=== PATIENT | male | born 1955 | race Caucasian/White ===

== ENCOUNTER 2018-04-29 16:41 | Emergency (ER) | payer MEDICARE, MEDICAID ==
[~2018-04-29] VITALS: Ht 177.8 cm; Wt 78.2 kg
[2018-04-29] MEDS ORDERED: normal saline 1000ML IV soln IVB ONE ×2 (17:00→19:15)
--- NOTE | 2018-04-29 17:00 | NUR ---
LEFT FOR PENELOPE
[2018-04-29 17:35] LABS: BASOPHILS % (AUTO) 0.1 % (0-1); EOSINOPHILS % (AUTO) 0 % (0-6); HEMATOCRIT 43.9 % (42.0-52.0); HEMOGLOBIN 14.6 g/dl (14.0-17.9); LYMPHOCYTES # (AUTO) 0.6 X10'3 (1.1-4.8); LYMPHOCYTES % (AUTO) 5.8 % (21-51); MEAN CORPUSCULAR HGB CONC 33.3 g/dL (33.0-36.5); MEAN PLATELET VOLUME 8.5 FL (7.4-10.4); MONOCYTES # (AUTO) 0.7 X10'3 (0-0.9); MONOCYTES % (AUTO) 6.2 % (2-12); NEUTROPHILS # (AUTO) 9.6 X10'3 (1.8-7.7); NEUTROPHILS % (AUTO) 87.9 % (42-75); PLATELET COUNT 218 X10'3 (140-440); RED BLOOD COUNT 5.22 X10'6 (4.70-6.10); RED CELL DISTRIBUTION WIDTH 14.3 % (11.5-14.5)
[2018-04-29 17:45] VITALS: BP 118/67
[2018-04-29 17:46] LABS: ALANINE AMINOTRANSFERASE 46 U/L (12-78); ALBUMIN 4.3 G/DL (3.4-5.0); ALBUMIN/GLOBULIN RATIO 1.2 (1.1-1.5); ALKALINE PHOSPHATASE 102 IU/L (46-116); ANION GAP 13 (8-16); ASPARTATE AMINO TRANSFERASE 24 U/L (10-37); BILIRUBIN,TOTAL 0.3 MG/DL (0.1-1.0); BLOOD UREA NITROGEN 20 MG/DL (7-18); BUN/CREATININE RATIO 8.6 (5.4-32.0); CALCIUM 9.7 MG/DL (8.5-10.1); CHLORIDE 113 MMOL/L (99-107); CREATININE 2.33 MG/DL (0.60-1.10); GLUCOSE 168 MG/DL (70-104); TOTAL CARBON DIOXIDE 28.8 MMOL/L (24-32); TOTAL PROTEIN 7.9 G/DL (6.4-8.2); eGFR 28 ML/MIN
[2018-04-29] MEDS ORDERED: MIDAZolam 5mg/5ml vial ONE (18:00)
[2018-04-29] MEDS ORDERED: fentaNYL/PF 50MCG/1 ML 2ML syringe ONE (18:00)
[2018-04-29 18:04] LABS: SODIUM 155 MMOL/L (135-145)
[2018-04-29 18:51] VITALS: BP 120/71
[2018-04-29 19:01] VITALS: BP 123/80
[2018-04-29 19:11] VITALS: BP 129/83
[2018-04-29 19:21] VITALS: BP 130/77
[2018-04-29] MEDS ORDERED: OMEP20TA5 PO (19:59)
[2018-04-29 21:18] VITALS: BP 147/81
--- NOTE | 2018-04-29 21:21 | NUR ---
SENT INTELLIGENCE OFFICER BASIC TO PT BEDSIDE TO DRAW BMP ORDERED BY DR ARRINGTON
[2018-04-29 21:39] LABS: ALBUMIN 3.8 G/DL (3.4-5.0); ANION GAP 10 (8-16); BLOOD UREA NITROGEN 18 MG/DL (7-18); BUN/CREATININE RATIO 8.7 (5.4-32.0); CALCIUM 8.5 MG/DL (8.5-10.1); CHLORIDE 117 MMOL/L (99-107); CREATININE 2.08 MG/DL (0.60-1.10); GLUCOSE 132 MG/DL (70-104); POTASSIUM 3.9 MMOL/L (3.5-5.1); TOTAL CARBON DIOXIDE 28.4 MMOL/L (24-32); eGFR 32 ML/MIN
[2018-04-29 21:43] LABS: SODIUM 155 MMOL/L (135-145)
== END 2018-04-29 22:23 ==
LOC: ER 16:42
DX: T18.128A Food in esophagus causing other injury, initial encounter (principal); E87.0 Hyperosmolality and hypernatremia; E11.22 Type 2 diabetes mellitus with diabetic chronic kidney disease; N18.9 Chronic kidney disease, unspecified; X58.XXXA Exposure to other specified factors, initial encounter; Y93.89 Activity, other specified; Y92.89 Other specified places as the place of occurrence of the external cause; Y99.8 Other external cause status
CPT/HCPCS: 36415; 43247; 71045; 80048; 80053; 85025; 96360; 96361; 99152; 99153; 99285; J2250; J3010; J7030; 99284; A4620

== ENCOUNTER 2021-10-01 14:15 | Emergency (ER) | payer MEDICARE, MEDICAID ==
[~2021-10-01] VITALS: Ht 177.8 cm; Wt 86.0 kg
[~2021-10-01 14:15] MED LIST: OMEP20TA43 PO
[2021-10-01] MEDS ORDERED: normal saline 1000ML IV soln IV ONE (14:25)
[2021-10-01 14:46] LABS: BASOPHILS % (AUTO) 0.2 % (0-1); EOSINOPHILS % (AUTO) 0.1 % (0-6); HEMATOCRIT 37.5 % (42.0-52.0); HEMOGLOBIN 12.8 g/dl (14.0-17.9); LYMPHOCYTES # (AUTO) 0.8 X10'3 (1.1-4.8); LYMPHOCYTES % (AUTO) 11.6 % (21-51); MEAN CORPUSCULAR HEMOGLOBIN 28.3 PG (27.0-31.0); MEAN CORPUSCULAR VOLUME 83.2 FL (78-98); MEAN PLATELET VOLUME 8.5 FL (7.4-10.4); MONOCYTES # (AUTO) 0.6 X10'3 (0-0.9); MONOCYTES % (AUTO) 8.7 % (2-12); NEUTROPHILS # (AUTO) 5.8 X10'3 (1.8-7.7); NEUTROPHILS % (AUTO) 79.4 % (42-75); PLATELET COUNT 206 X10'3 (140-440); RED BLOOD COUNT 4.51 X10'6 (4.70-6.10); RED CELL DISTRIBUTION WIDTH 13.6 % (11.5-14.5); WHITE BLOOD COUNT 7.3 X10'3 (4.5-11.0)
[2021-10-01 15:00] LABS: ALANINE AMINOTRANSFERASE 21 U/L (12-78); ALBUMIN 3.7 G/DL (3.4-5.0); ALKALINE PHOSPHATASE 127 IU/L (46-116); ANION GAP 10 (8-16); ASPARTATE AMINO TRANSFERASE 11 U/L (10-37); BILIRUBIN,TOTAL 0.3 MG/DL (0.1-1.0); BLOOD UREA NITROGEN 19 MG/DL (7-18); CALCIUM 9.2 MG/DL (8.5-10.1); CHLORIDE 102 MMOL/L (99-107); CREATININE 1.58 MG/DL (0.60-1.10); GLUCOSE 158 MG/DL (70-104); POTASSIUM 3.6 MMOL/L (3.5-5.1); SODIUM 140 MMOL/L (135-145); TOTAL CARBON DIOXIDE 27.8 MMOL/L (24-32); TOTAL PROTEIN 7.3 G/DL (6.4-8.2); eGFR 44 ML/MIN
[2021-10-01 16:52] LABS: CLARITY,URINE CLEAR (Clear); COLOR,URINE YELLOW (Yellow); GLUCOSE, URINE NEGATIVE (Neg); KETONES,URINE NEGATIVE (Neg); LEUKOCYTE ESTERASE ,URINE NEGATIVE (Neg); NITRITES, URINE NEGATIVE (Neg); OCCULT BLOOD,URINE NEGATIVE (Neg); PROTEIN,URINE NEGATIVE (Neg); UROBILINOGEN,URINE 0.2 E.U/dL (0.2-1.0)
[2021-10-01 17:05] VITALS: BP 136/87
[2021-10-01 17:21] LABS: UA COLLECTION TYPE CLN CATCH MIDSTREAM
== END 2021-10-01 17:54 | disposition home or self-care (01) ==
LOC: ER 14:16
DX: Z00.00 Encounter for general adult medical examination without abnormal findings (principal); Z71.1 Person with feared health complaint in whom no diagnosis is made; E11.22 Type 2 diabetes mellitus with diabetic chronic kidney disease; N18.9 Chronic kidney disease, unspecified; Z88.8 Allergy status to other drugs, medicaments and biological substances
CPT/HCPCS: 36415; 71045; 80053; 81003; 83605; 83735; 84145; 85025; 87040; 93005; 96360; 96361; 99285; J7030

== ENCOUNTER 2021-10-20 15:14 | Emergency (ER) | payer MEDICARE, MEDICAID ==
[~2021-10-20] VITALS: Ht 177.8 cm; Wt 68.6 kg
[2021-10-20 15:24] VITALS: BP 116/72
[2021-10-20 16:29] LABS: BASOPHILS # (AUTO) 0.1 X10'3 (0-0.2); BASOPHILS % (AUTO) 1.1 % (0-1); EOSINOPHILS % (AUTO) 0.3 % (0-6); HEMATOCRIT 36.8 % (42.0-52.0); HEMOGLOBIN 12.2 g/dl (14.0-17.9); LYMPHOCYTES # (AUTO) 0.8 X10'3 (1.1-4.8); LYMPHOCYTES % (AUTO) 12.3 % (21-51); MEAN CORPUSCULAR HEMOGLOBIN 27.7 PG (27.0-31.0); MEAN CORPUSCULAR HGB CONC 33.2 g/dL (33.0-36.5); MEAN CORPUSCULAR VOLUME 83.6 FL (78-98); MONOCYTES # (AUTO) 0.4 X10'3 (0-0.9); MONOCYTES % (AUTO) 6.4 % (2-12); NEUTROPHILS # (AUTO) 5.3 X10'3 (1.8-7.7); NEUTROPHILS % (AUTO) 79.9 % (42-75); PLATELET COUNT 186 X10'3 (140-440); RED CELL DISTRIBUTION WIDTH 14.7 % (11.5-14.5); WHITE BLOOD COUNT 6.6 X10'3 (4.5-11.0)
[2021-10-20 16:31] LABS: ANION GAP 4 (8-16); CHLORIDE 105 MMOL/L (99-107); GLUCOSE 151 MG/DL (70-104); POTASSIUM 3.5 MMOL/L (3.5-5.1); SODIUM 141 MMOL/L (135-145); TOTAL CARBON DIOXIDE 31.6 MMOL/L (24-32)
[2021-10-20 16:32] LABS: ALANINE AMINOTRANSFERASE 40 U/L (12-78); ALBUMIN 3.5 G/DL (3.4-5.0); ALBUMIN/GLOBULIN RATIO 1.2 (1.1-1.5); ALKALINE PHOSPHATASE 117 IU/L (46-116); ASPARTATE AMINO TRANSFERASE 17 U/L (10-37); BILIRUBIN,TOTAL 0.1 MG/DL (0.1-1.0); BLOOD UREA NITROGEN 20 MG/DL (7-18); BUN/CREATININE RATIO 13.7 (5.4-32.0); CALCIUM 8.9 MG/DL (8.5-10.1); CREATININE 1.46 MG/DL (0.60-1.10); TOTAL PROTEIN 6.5 G/DL (6.4-8.2); eGFR 48 ML/MIN
== END 2021-10-20 17:33 | disposition home or self-care (01) ==
LOC: ER 15:14
DX: M54.2 Cervicalgia (principal); R42 Dizziness and giddiness; W19.XXXA Unspecified fall, initial encounter; E09.22 Drug or chemical induced diabetes mellitus with diabetic chronic kidney disease; N18.9 Chronic kidney disease, unspecified; F20.9 Schizophrenia, unspecified; Z88.8 Allergy status to other drugs, medicaments and biological substances; Z79.899 Other long term (current) drug therapy
CPT/HCPCS: 36415; 70450; 72125; 80053; 85025; 99284

== ENCOUNTER 2024-06-23 12:44 | Outpatient (CLI) | payer MEDICARE, MEDICAID ==
--- NOTE | 2024-06-23 16:30 | CONSULTATION ---
DATE OF CONSULTATION: 06/23/2024 DICTATING PHYSICIAN: Kajal Dutta M.S., [facility]-[employer] SALES REPRESENTATIVE MODIFIED BARIUM SWALLOW STUDY REPORT REFERRING PHYSICIAN: Johnie Olivares MD HISTORY OF PRESENT ILLNESS: The patient is a 69-year-old male who consents to this evaluation. In history obtained from the patient and medical records, the patient has symptoms of dysphagia including feeling that his esophagus closes up and that food and liquid will not go down. He reports this used to happen on a daily basis, but has not been occurring as much lately. He notes that he has been careful about chewing his food better and going slow when he is eating. The patient notes that he hit his head when he was a baby and it broke his neck and so it is crooked. The patient is a resident at [facility] and [facility]. He has diagnoses of paranoid schizophrenia and Vazquez's esophagus without dysplasia. CURRENT DIET: The patient is currently on a regular textured, thin liquid diet. MEDICATIONS: Protonix 40 mg twice daily, docusate sodium 250 mg twice daily p.r.n., Abilify Maintena intramuscular prefilled syringe 300 mg inject intramuscularly every 28 days. PARAMETERS: The patient is seated in a lateral 90-degree view and administered thin and nectar thick liquids and puree consistencies as well as self-regulated boluses of thin liquids from a cup. The patient refused the second puree trial and solid consistency and refused to swallow the nectar thick consistency. RESULTS: In the oral stage of the swallow, there is a mild oral residue. Lingual strength is within functional limits, but this is due to decreased lingual palatal stripping secondary to mildly decreased tongue-base retraction. For the most part, swallow initiation is within functional limits with the exception of one of the administrations of the 3 mL thin liquid bolus, in which the swallow initiation was delayed. In the pharyngeal stage of the swallow, elevation of the hyothyroid complex is accomplished with full range of motion. There is a mild pharyngeal residue and PES opening is within functional limits. The patient was provided the nectar thick liquid, but refused to swallow it and instead spit it out. He had one trial of puree and would not take any other trials or the solid consistency. In terms of airway safety, the patient demonstrated an aspiration that was less than 10% of the bolus for 1 out of 2 trials of the 3 mL thin liquid. He did not demonstrate any aspiration or penetration for the other 3 mL thin liquid as well as 1 mL, 5 mL of self-regulated boluses. For the trial, he did have aspiration, he demonstrated independent cough to project the bolus out of the airway, although there did remain a drop in the airway after his cough. ANTERIOR, POSTERIOR VIEW: In the AP plane, the bolus split symmetrically between the piriform sinuses. It was noted that with the patient, the bolus would remain at the mid sternum. When the fluoroscopy for the anterior-posterior view was turned on, which was about a minute after the last administration of the bolus in the lateral view, there was still residue of that last bolus residing at the level of the mid sternum. The tail of the bolus did not go past the mid sternum for the entirety of the time the video was on. 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 DIAGNOSES: R13.14 dysphagia, pharyngoesophageal phase; F20.0 paranoid schizophrenia, K22.70 Vazquez's esophagus without dysplasia; K22.2 esophageal obstruction. PATIENT EDUCATION: Immediately following a modified barium swallow study, the patient and staff of [facility] were able to view the results. They were able to see how the bolus remained at the level of the mid sternum the entire time during the anterior-posterior view of the swallow as well as the other frames of the swallowing. The patient was educated on alternating liquids and solids, continuing to chew his food thoroughly and going slow, and a potential for a GI consult. RECOMMENDATIONS: * It is recommended that the patient utilize safe swallowing strategies including alternating liquids and solids and chewing his food thoroughly. * It is recommended that the patient be considered for a GI consult regarding what was observed in the AP view with the tail of the bolus sitting at the level of the mid sternum for the entirety of the time frame of the AP view. LONG-TERM GOALS: The patient will maintain adequate hydration/nutrition with optimum safety and efficiency of swallow function on p.o. intake without overt signs and symptoms of aspiration for the highest possible diet level. FUNCTIONAL ORAL INTAKE: The FOIS was administered to establish and document a change in the functional eating activities of this patient over time. This is a 7-point scale with 1 indicating no oral intake and totally tube dependent and 7 indicating total oral intake with no restrictions. This patient received a 7, which indicates total oral intake with no restrictions. G-CODE: [id number]. Thank you very much for asking me to participate in the care of this kind patient. Should you have any questions regarding this evaluation or recommendations, please do not hesitate to contact me at [phone]. During this examination, 2:05 minutes of fluoroscopy time and 25.92 CAK mGy were utilized. Kajal Dutta M.S., [facility] SALES REPRESENTATIVE TID: [id number] RECEIPT: [id number] VALE/CLEMENTE GARCIA
== END 2024-06-23 23:59 | disposition home or self-care (01) ==
LOC: RAD 12:44
PROVIDERS: ATTEND Internal Medicine
DX: R13.14 Dysphagia, pharyngoesophageal phase (principal); F20.0 Paranoid schizophrenia; K22.70 Barrett's esophagus without dysplasia; K22.2 Esophageal obstruction
CPT/HCPCS: 74230